=== PATIENT | female | born 1960 | race Caucasian/White ===

== ENCOUNTER → 2024-04-21 06:57 | Outpatient (REF) | payer MEDICARE, SELFPAY ==
[2024-04-21 10:02] LABS: % Basophils 1.3 % (0-2); % Eosinophils 2.6 % (0-6); % Immature Granulocytes 0.3 % (0-0.5); % Lymphocytes 38.9 % (20.5-51.1); % Monocytes 7.6 % (1.7-9.3); % Neutrophils 49.3 % (42.2-75.2); Absolute Basophils 0.1 10^3/uL (0-0.2); Absolute Eosinophils 0.1 10^3/uL (0-0.7); Absolute Lymphocytes 1.5 10^3/uL (1.2-3.4); Absolute Monocytes 0.3 10^3/uL (0.1-0.6); Absolute Neutrophils 1.9 10^3/uL (1.4-6.5); Hematocrit 41.8 % (37.0-47.0); Hemoglobin 14.1 g/dL (12.0-16.0); Mean Corp Hgb Conc. 33.7 g/dL (33.0-37.0); Mean Corpuscular Hgb 30.3 pg (27.0-31.0); Mean Corpuscular Volume 89.7 fL (81.0-99.0); Mean Platelet Volume 10.5 fL (7.4-10.4); Nucleated Red Blood Cells % 0 %; Platelet Count 169 10^3/uL (130-400); Red Blood Cell Count 4.66 10^6/uL (4.20-5.40); Red Cell Dist. Width 12.3 % (11.5-14.5); White Blood Cell Count 3.8 10^3/uL (4.8-10.8)
[2024-04-21 10:23] LABS: ALT (SGPT) 18 U/L (0-35); AST (SGOT) 24 U/L (14-36); Albumin 4.5 g/dl (3.5-5.0); Alkaline Phosphatase 75 U/L (38-126); Blood Urea Nitrogen 16 mg/dl (7-17); Calcium 9.3 mg/dl (8.4-10.2); Carbon Dioxide 29 mmol/L (22-30); Chloride 101 mmol/L (98-107); Glucose 109 mg/dl (70-99); HDL Cholesterol 100 mg/dl; LDL Cholesterol, Calculated 105 mg/dl; Potassium 3.7 mmol/L (3.5-5.1); Sodium 138 mmol/L (135-145); Total Bilirubin 0.7 mg/dl (0.2-1.3); Total Cholesterol 223 mg/dl (50-199); Total Protein 7.2 g/dl (6.3-8.2); Triglyceride 94 mg/dl (10-149); Very Low Density Lipoprotein 18 mg/dl (0-30); eGFR > 60.00
[2024-04-21 10:52] LABS: TSH Reflex To Free T4 2.08 uIU/ml (0.47-4.68)
== END ==
LOC: HWLAB 06:57
PROVIDERS: ATTENDING PHYSICIAN Internal Medicine
DX: Z00.00 Encounter for general adult medical examination without abnormal findings (principal); E78.01 Familial hypercholesterolemia; R79.9 Abnormal finding of blood chemistry, unspecified
CPT/HCPCS: 36415; 80053; 80061; 84443; 85025

== ENCOUNTER → 2024-05-17 06:29 | Outpatient (REF) | payer MEDICARE, SELFPAY | LOC: HWWDC 06:29 | PROVIDERS: ATTENDING PHYSICIAN Obstetrics & Gynecology Gynecology; FAMILY PHYSICIAN Internal Medicine | DX: Z12.31 Encounter for screening mammogram for malignant neoplasm of breast (principal) | CPT/HCPCS: 77063; 77067 ==

== ENCOUNTER 2024-11-17 00:02 | Inpatient (IN) | payer MEDICARE, SELFPAY ==
[2024-11-16] VITALS (11 sets, daily range): BP systolic 135–182; BP diastolic 93–143; BMI 25.2
[2024-11-16 20:11] LABS: Hematocrit 40.4 % (37.0-47.0); Hemoglobin 14.2 g/dL (12.0-16.0); Mean Corp Hgb Conc. 35.1 g/dL (33.0-37.0); Mean Corpuscular Volume 84.9 fL (81.0-99.0); Nucleated Red Blood Cells % 0 %; Platelet Count 158 10^3/uL (130-400); Red Cell Dist. Width 13.2 % (11.5-14.5)
[2024-11-16 20:32] LABS: ALT (SGPT) 19 U/L (0-35); AST (SGOT) 28 U/L (14-36); Albumin 4.3 g/dl (3.5-5.0); Alkaline Phosphatase 63 U/L (38-126); Blood Urea Nitrogen 23 mg/dl (7-17); Calcium 8.5 mg/dl (8.4-10.2); Carbon Dioxide 25 mmol/L (22-30); Chloride 104 mmol/L (98-107); Estimated Creatinine Clearance 58 ml/min; Glucose 123 mg/dl (70-99); Potassium 3.7 mmol/L (3.5-5.1); Sodium 135 mmol/L (135-145); Total Protein 6.7 g/dl (6.3-8.2); eGFR > 60.00
[2024-11-16 20:35] LABS: Troponin I < 0.012 ng/ml
--- NOTE | 2024-11-16 20:40 | ED.GENMED ---
History of Present Illness
General
Chief Complaint: Heart Rate Problem
Time Seen by Provider: 11/16/24 19:48
History of Present Illness
History of Present Illness:
63-year-old female with history of hyperlipidemia and arthritis presenting to the emergency department for palpitations and elevated heart rate. Patient reports 5 days ago after traveling she started to feel generally unwell. The following day,
felt worse with fevers or cough. She tested herself for COVID, positive. Today she was starting to feel more dizzy and lightheaded with palpitations. She talk to her primary care doctor who advised that she come to the hospital. Patient arrives
in atrial fibrillation with no prior history. She is not on any blood thinners. She is currently taking Paxlovid, did not take the medication today. Denies chest pain. Notes some mild dyspnea and coughing. Reports that her fevers have improved.
Denies abdominal pain or GI symptoms. Denies additional acute medical complaints.
Past History
Past History
ED Past Medical History: Other (Migraine headache) and Other (coarctation of aorta)
ED Past Surgical History: Cardiac and
Social History
Tobacco: Non-smoker
Alcohol: None
Drug: None
Personal:
Living: with family
Phy Exam
Physical Exam
Physical Exam:
General: Well-appearing, no clinical signs of dehydration, nontoxic and in no acute distress
HEENT: protecting airway
Neck: appears supple
CV: Irregularly irregular rhythm, tachycardic
Resp: No accessory muscle use, no increased work of breathing, lungs clear to auscultation bilaterally
Abd: No distention
Extremities: No deformities, no swelling
Neuro: alert, no focal neurologic deficit
: deferred
Rectal: deferred
Psych: Normal affect
Skin: Intact
Course
Orders/Labs/Results
Orders:
Orders
11/16/24 19:09
Electrocardiogram (*1) Urgent
Reason for Study: Atrial Fibrillation
EKG- Treatment ONCE
11/16/24 20:03
Complete Blood Count/With Diff Urgent
Comprehensive Metabolic Panel Urgent
Troponin I Urgent
11/16/24 20:24
Diltiazem HCl [Cardizem] 18 mg IV NOW STA
11/16/24 20:34
CR Chest Portable - 1 View Urgent
Comment:
Reason For Exam: COVID, afib
Reason Study Needs to be Portable: Other
11/16/24 21:15
COVID-19 Antigen Urgent
Source: Nasal Swab
11/16/24 21:20
Diltiazem 125 mg/125 ml Nss [Cardizem] 125 mg in 125 ml IV NOW
Currently infusing. Continue current dose and titrate:: Yes
Titrate to keep:: Heart rate 80-100 bpm
Titrate by mg/hr:: 5 mg/hr
Frequency of titrations (minutes):: 15
Maximum dose in mg/hr:: 15
11/16/24 21:54
PTT Urgent
Prothrombin Time Urgent
11/16/24 22:24
Electrocardiogram (*1) Urgent
Reason for Study: Palpitations
EKG- Treatment ONCE
Apixaban [Eliquis] 5 mg PO ONCE ONE
Abnormal Lab Results
11/16/24 11/16/24
20:03 21:15
WBC 3.5 L 10^3/uL
(4.8-10.8)
Monocytes % 11.3 H %
(1.7-9.3)
BUN 23 H mg/dl
(7-17)
Glucose 123 H mg/dl
(70-99)
SARS-CoV-2 Antigen Positive A
(Negative)
11/16/24 20:03
11/16/24 20:03
Vital Signs
Initial and Last Documented VS:
Initial Vital Signs
Pulse Resp Pulse Ox
152 16 98
11/16/24 19:14 11/16/24 19:14 11/16/24 19:14
Last Documented Vital Signs
Pulse Resp BP Pulse Ox
107 28 181/136 93
11/16/24 21:31 11/16/24 21:31 11/16/24 21:31 11/16/24 21:15
MDM/Problems Addressed
MDM/Problems Addressed:
63-year-old female with history of hyperlipidemia and arthritis presenting for concern of atrial fibrillation, positive COVID status. Vital signs on arrival significant for tachycardia and hypertension.
On exam, patient is resting comfortably, no acute distress. However patient is in obvious A-fib with RVR, confirmed by EKG. No prior history and patient notes that she has been feeling unwell for the past 5 days, no anticoagulation so does not
appear to be a candidate for cardioversion. Will try diltiazem for control. Possibly provoked by COVID infection. Will screen with laboratory analysis and chest x-ray imaging, however stable from a respiratory standpoint.
20:40 - Labs unremarkable.
22:50 -patient's heart rate is better controlled on diltiazem drip, however still going into the low 100s. Eliquis given. Admitting for new onset A-fib for rate control.
*Pulse Oximetry
SaO2: 97
Oxygen Mode of Delivery: Room air
Patient hypoxic: no
*EKG
Interpreted by ED Provider?: Yes
EKG Intrepretation Date: 11/16/24
EKG Intrepretation Time: 20:45
Interpretation: abnormal
Comparison EKG: no comparison EKG present
Heart Rate: 152
Rate: tachycardiac
Rhythm: a-fib
[place]: normal axis
QRS Pattern: right bundle branch block
Ischemia: non-specific ST changes
*Critical Care Note
Total Time (30-74mins, 75-104mins- exclusive of procedures): Not Applicable
ED Attending Note
-
Portions of this chart may have been created with voice recognition software.� Occasional wrong word or��sound alike� substitutions may have occurred due to the inherent limitations of voice recognition software.
Discharge Plan
Departure
Prescriptions:
No Action
ondansetron 4 MG tablet,disintegrating
4 mg PO TIDPRN PRN (Reason: nausea/vomiting) Qty: 12 0RF
Referrals:
Ivan Junior I., DO [Family Provider, Internal Medicine]
Interventions
Interventions:
*Risk Screen - Suicide Last Done: 11/16/24 19:09
*General Assessment Last Done: 11/16/24 19:14
*ED- Fall Risk Assessment Last Done: 11/16/24 19:14
*ED COVID-19 Vaccine History Last Done: 11/16/24 19:14
ED- Cardiac Assessment Last Done: 11/16/24 20:00
ED- Pulmonary Assessment Last Done: 11/16/24 20:00
Discharge Date and Time
Print Language: IRISH
[2024-11-16] MEDS: CARDIZEM 18 MG IV (21:06)
[2024-11-16 21:32] LABS: COVID-19 Antigen Positive (Negative)
[2024-11-16] MEDS: CARDIZEM 125 IV (21:50)
[2024-11-16 22:16] LABS: INR 0.95; PT 13.2 Sec (11.4-14.6)
[2024-11-16 22:17] LABS: APTT 28.5 Sec (23.4-35.0)
--- NOTE | 2024-11-16 22:57 | HPS.HSE ---
Family Physician
-
Family Physician: Ivan Junior
Chief Complaint
-
palpitations and elevated heart rate
History of Present Illness
Patient is a 63-year-old female with past medical history significant for hyperlipidemia who presented to [facility] ED for evaluation of palpitations and elevated heart rate. Patient reports recent travel and when she returned home she started not
feeling well and ultimately tested positive for Covid on Wednesday. Patient took 3 days of Paxlovid and still was not feeling well so called to schedule appointment with primary care which was at 1800 this evening, she was seen by provider and referred
directly to ED for evaluation of new onset atrial fibrillation. Patient reports fever and cough throughout week. She states today she called for appointment because of feeling dizzy, weakness and exertional dyspnea.
Medical History
Past Medical History
Past Medical History: Reports Other
Additional Past Medical History:
hyperlipidemia
osteoarthritis
Headache, migraine
Atrial septal defect-open heart surgery age 4 years
Hepatitis C-treated for 1 yr successful
herniated disc
Coarctation of the aorta
Past Surgical History: Reports Other
Additional Past Surgical History:
Liver Biopsy
D and C
section
Right L3-L4 Interlaminar Epidural Steroid Injection 01/05/17
Right L3-L4 Interlaminar Epidural Steroid Injection 03/05/17
Atrial septal defect-open heart surgery age 4 years
Coarctation of the Aorta- surg 6 months
Herniated Disc Surgery (2018)
08/17/2020 appendectomy ([facility])
Social History
Tobacco: Non-smoker
Alcohol: None
Drug: None
Personal:
Living: With Family
Employment: Employed
Family History
Family History: Other (Mother: a-fib; Sister: a-fib)
Allergies / Home Medications
Allergies reflects when Allergies were last updated in [facility].
Home Medications with original date entered in [facility]
Allergy/Medication List:
Allergies
Allergy/AdvReac Type Severity Reaction Status Date / Time
epinephrine Allergy 'makes me Verified 11/16/24 19:14
panicky'
and heart
races
Home Medications
atorvastatin 10 mg tablet 10 mg PO HS 11/16/24
celecoxib 200 mg capsule (Celebrex) 200 mg PO DAILY 11/16/24
Review of Systems
-
History Source: Patient
Constitutional: Reports Fever and Chills
EENT: Denies Sore Throat
Respiratory: Reports Cough and Trouble Breathing (exertional dyspnea )
Cardiac: Reports Palpitations; Denies Chest Pain or Diaphoresis
Abdomen/GI: Denies Abdominal Pain, Nausea, Vomiting or Diarrhea
: Denies Flank Pain
Musculoskeletal: Denies Edema
Skin: Denies Itching
Neurological: Reports Dizzy and Weakness
Endocrine: Denies Polyuria or Polydipsia
Psych: Reports Calm
Physical Exam
Vital Signs
Vital Signs
Pulse Resp BP Pulse Ox
107 28 181/136 93
11/16/24 21:31 11/16/24 21:31 11/16/24 21:31 11/16/24 21:15
Physical Exam
General: Well Developed, Well Nourished, No Apparent Distress, Comfortable and Conversant
HEENT: NormoCephalic, Moist mucous membranes and Atraumatic
Respiratory: Clear and Non Labored Respirations
Cardiac: S1/S2, Irregular Rhythm and Tachycardia; No Murmur, Rub, Gallop or Peripheral Edema
Breast: Deferred by me
GI: Soft, Non Tender, Non Distended and Normal Bowel Sounds; No Organomegaly
Rectal: Deferred by Provider
Genito-urinary: Deferred by me
Musculoskeletal: No Clubbing, No Cyanosis and No Edema
Skin: Warm and IV/Catheter Site
Neuro: Nonfocal/grossly intact
Psych: Calm and Intact Judgment/Insight
Laboratory Results
-
11/16/24 20:03
11/16/24 20:03
Laboratory Results
PT 13.2 Sec (11.4-14.6) 11/16/24 21:54
INR 0.95 11/16/24 21:54
APTT 28.5 Sec (23.4-35.0) 11/16/24 21:54
Total Bilirubin 0.6 mg/dl (0.2-1.3) 11/16/24 20:03
AST 28 U/L (14-36) 11/16/24 20:03
ALT 19 U/L (0-35) 11/16/24 20:03
Alkaline Phosphatase 63 U/L (38-126) 11/16/24 20:03
Troponin I < 0.012 ng/ml 11/16/24 20:03
Data Reviewed
-
Diagnostic Radiology: Report Reviewed by me (CXR: No acute cardiopulmonary process.)
Lab Data: Labs Reviewed by me
Impression/Plan
-
IMPRESSION/PLAN:
#new onset atrial fibrillation with RVR
CXR: No acute cardiopulmonary process.
EKG: ATRIAL FIBRILLATION
LEFT AXIS DEVIATION
INCOMPLETE RIGHT BUNDLE BRANCH BLOCK
POSSIBLE INFERIOR INFARCT , AGE UNDETERMINED
- Admit to IMU
- Consult Cardiology
- ECHO in AM
- diltiazem gtt
- start Eliquis
#covid
- stop Paxlovid
- supportive care
#hyperlipidemia
- continue atorvastatin
#osteoarthritis
- continue celecoxib
Code status: full code
DVT prophylaxis: Eliquis
[2024-11-16] MEDS: ELIQUIS 5 MG PO (23:09)
--- NOTE | 2024-11-16 23:18 | W.PN.UPDATE ---
Update Note
Progress Note Update
This note serves as an addendum to the H&P by lithograph press operator LAUREN�
Mandi Dickson�
HPI
63F HX HTN, hyperlipidemia and arthritis seen at ER:
- Evaluation for for palpitations and elevated heart rate.
- Denies chest pain.
- reports 5 days ago after traveling she started to feel generally unwell.
- COVID, positive since Wednesday ( 11/13/24) - currently taking Paxlovid, did not take the medication today.
- Today she was starting to feel more dizzy and lightheaded with palpitations.
- sent in to ER by PCP
- Patient arrives in atrial fibrillation with no prior history. - not on any blood thinners.
- some mild dyspnea and coughing. - fevers have improved.
- Denies abdominal pain or GI symptoms.
- Denies additional acute medical complaints.
Relevant VS
Pulse Resp BP Pulse Ox
107 28 181/136 93
11/16/24 21:31 11/16/24 21:31 11/16/24 21:31 11/16/24 21:15
PE
Gen: Not toxic
HEENT: anicteric
Neck: supple
Lungs: no labored breathing
Cor: Irrgegular
BEER MERCHANT: AAO3
MS: no edema
Psych: appropriate
Relevant data�
11/16/24 11/16/24
20:03 21:15
WBC 3.5 L
Monocytes % 11.3 H
BUN 23 H
Glucose 123 H
SARS-CoV-2 Antigen Positive A
CXR
- No acute cardiopulmonary process.
ASSESSMENT & PLAN
Pending Rx reconciliation
New onset symptomatic Fast A Fib
- questionable an episode of A Fib in October but did not see [facility]
- agree with Diltiazem gtt
- agree with Eliquis 5 mg BID
- ECHO in AM
- CBC card consult
Uncontrol HTN - Initial BP 180/135
HX Benign HTN
- Observe BP on Diltiazem gtt
HX HLD
- check Lipids
Positive COVID since Wednesday
- Borderline hypoxic RI
- NEG CXR - no indication fo steroids
- Covid remain POS upon admissin
- clinical onset of unwell since Wednesday.
- on BR[employer] PREPARER Paxolovid D3 - she declined further Paxlovid
- supportive care with O2 PRN to keep POx > 93
DVT Px: on Eliquis
Full Code
IP TLM
[2024-11-16 23:51] LABS: Magnesium 2.1 mg/dl (1.6-2.3)
[2024-11-17] VITALS (16 sets, daily range): BP systolic 109–161; BP diastolic 81–139; BMI 26.8
--- NOTE | 2024-11-17 01:00 | PTCARENOTE ---
Addendum entered by No Warren RN 11/17/24 06:38:
BETHANIE Kalani made aware of HR, restarting Cardizem gtt.
Addendum entered by No Warren RN 11/17/24 05:51:
While patient was ambulating HR up to 120s. Pt now resting HR 105.
Original Note:
Received patient from ED via stretcher. Pt ambulated to the bed with standby assistance. Pt denied any dizziness. AAOx3, pleasant. [place] has b/l hearing aids. A-fib on the monitor HR 90s-100s. Pt weaned off Cardizem gtt in ED. Pt on room air. Non
productive occasional cough. c/o headache administered PRN Tylenol. Assessment and care as charted. staying the night. Pt oriented to the unit and call koroma. Call koroma within reach.
[2024-11-17] MEDS: TYLENOL 650 MG PO ×2 (02:08→15:51)
[2024-11-17 03:42] LABS: Hematocrit 37.4 % (37.0-47.0); Hemoglobin 13.0 g/dL (12.0-16.0); Mean Corp Hgb Conc. 34.8 g/dL (33.0-37.0); Mean Corpuscular Volume 85.6 fL (81.0-99.0); Platelet Count 163 10^3/uL (130-400); Red Cell Dist. Width 13.2 % (11.5-14.5)
[2024-11-17 04:01] LABS: Blood Urea Nitrogen 16 mg/dl (7-17); Calcium 8.6 mg/dl (8.4-10.2); Carbon Dioxide 25 mmol/L (22-30); Chloride 106 mmol/L (98-107); Estimated Creatinine Clearance 75 ml/min; Glucose 151 mg/dl (70-99); HDL Cholesterol 77 mg/dl; LDL Cholesterol, Calculated 98 mg/dl; Potassium 4.0 mmol/L (3.5-5.1); Sodium 138 mmol/L (135-145); Very Low Density Lipoprotein 13 mg/dl (0-30); eGFR > 60.00
[2024-11-17] MEDS: CARDIZEM 125 IV (06:23)
[2024-11-17] MEDS: CELEBREX 200 MG PO (08:36)
[2024-11-17] MEDS: ELIQUIS 5 MG PO (08:37)
--- NOTE | 2024-11-17 09:34 | CON.CAR ---
Addendum entered and electronically signed by Darron Roque MD 11/17/24 11:42:
Patient evaluated in collaboration with GOAT HERDER; agree with below.
- 63-year-old female with hypertension, hyperlipidemia, and osteoarthritis admitted with COVID; Cardiology consulted for new onset atrial fibrillation.
- Recommend transitioning the patient from Cardizem drip to PO Cardizem CD 180 mg daily for now--uptitrate as needed for optimal heart rate control.
- Continue Eliquis.
- Can obtain echocardiogram as outpatient; order canceled.
- Continue classroom monitor.
Original Note:
Consultation
Consultation Request
Date/Time Consultation Requested: 11/17/24 12:30a
Date/Time Consultation Performed: 11/17/24 8:30a
Requesting Provider: BETHANIE Almonte
Performing Provider: BETHANIE Souza per Dr. Roque
Reason for Consultation: new onset rapid Afib
Medical History
-
Chief Complaint: sob, weakness
History of Present Illness:
Mrs. Vazquez is a 63 yo female with HLD, OA and prior ASD repair at age 4, who presents to the ER from PCP office with new rapid Afib. She was feeling weak, lightheaded and SOB with a cough on 11/13/24, tested positive for COVID and PCP prescribed
Paxlovid. Yesterday she c/o racing heart and went to PCP, EKG showed new rapid Afib and they sent her to the ER. She was started on Diltiazem drip and Eliquis and admitted to the hospitalist service. We are consulted for new rapid Afib. Her BP
is very elevated since admission as well.
Past Medical History
Past Medical History: Other (as above)
Past Surgical History: Cardiac (ASD repair age 4)
Social History
Tobacco: Non-Smoker
Alcohol: None
Personal:
Living: With Family
Family History
Family History: Other (mother, sister and maternal uncles with Afib)
Allergies / Home Medications
Allergy/AdvReac Type Severity Reaction Status Date / Time
epinephrine Allergy 'makes me Verified 11/16/24 19:14
panicky'
and heart
races
�Medication �Instructions �Recorded �Confirmed �Type
atorvastatin 10 mg tablet 10 mg PO HS High Cholesterol 11/16/24 11/16/24 History
celecoxib 200 mg capsule (Celebrex) 200 mg PO DAILY Osteoarthritis 11/16/24 11/16/24 History
Review of Systems
-
History Source: Patient
All other systems: Negative unless noted
Physical Exam
Vital Signs
Temp Pulse Resp BP Pulse Ox
97.8 F 98 23 140/115 92
11/17/24 07:24 11/17/24 06:30 11/17/24 06:30 11/17/24 06:00 11/17/24 06:30
Lab Results
11/17/24 03:23
11/17/24 03:23
Troponin I < 0.012 ng/ml 11/16/24 20:03
Physical Exam
General: Well Developed, Well Nourished and No Apparent Distress
HEENT: Normocephalic, Anicteric and Moist Mucous Membranes
Respiratory: Clear and Non Labored Respirations
Cardiac: S1/S2 and Irregular Rhythm
Breast: Deferred by me
GI: Soft, Non Tender, Non Distended and Normal Bowel Sounds
Rectal: Deferred by Provider
Genito-urinary: Clear Urine
Musculoskeletal: No Clubbing, No Cyanosis and No Edema
Skin: Warm and Dry
Neuro: AO x 3
Hematologic/Lymphatic: No Lymphadenopathy
Psych: Calm
Impression / Plan
-
Afib - new onset, duration unknown, rapid ventricular response.
- rates improved with IV Diltiazem, switch to PO and monitor.
- plan for rate control and resolution of COVID then outpatient echo, stress test and can discuss rhythm control.
- [id number] score is 2 (female, age), maybe 3 with HTN... she is on Eliquis 5mg BID, continue.
- currently denies palpitations or other cardiac symptoms.
COVID - tested positive 11/13/24 and treated with Paxlovid.
- per hospitalist.
Elevated BP without diagnosis of HTN - acute, new.
- monitor with addition of PO Diltiazem.
- will titrate as necessary.
HLD - stable on Simvastatin, contniue.
Data Reviewed
-
EKG: Tracing Personally Visualized and interpreted (Afib 158 bpm, then 98 bpm)
Radiology: Report Reviewed by me (CXR: NAD)
Labs: Labs Reviewed by me
Old Records: Reviewed
[2024-11-17] MEDS: CARDIZEM CD 180 MG PO (09:57)
--- NOTE | 2024-11-17 11:16 | PTCARENOTE ---
Patient AAOx3, states feeling much better. Slight occasional cough, nonproductive. RA. DBPs elevated at times. Cardizem gtt off. HR currently 80s, afib. Continuing to monitor patient.
--- NOTE | 2024-11-17 11:53 | CM ---
Spoke with patient to obtain information for assessment. Patient stated that she lives with her spouse in a two story single home with 3 steps to enter. She described herself as independent with all of her ADLs, personal care, bathing and dressing.
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 She was driving and was able to transport herself to all of her appointments and did all of her own shopping. She has never had VN. She has not been to a SNF in the past. She has no DME.
Patient has a prescription plan and uses, [facility] in [place] for all of her medications.
Her PCP is Ivan Mack.
Plan: Case management will continue to follow and assist with discharge planning. Will watch for needs.
--- NOTE | 2024-11-17 13:30 | W.PN.HOSP.TC ---
Today's Communication/Plan
-
Assessment / Plan
Assessment / Plan
General: No Apparent Distress, Comfortable and Conversant
HEENT: NormoCephalic, Moist mucous membranes, Atraumatic
Respiratory: Clear and Non Labored Respirations
Cardiac: Irregular rhythm, heart rate controlled around 80
GI: Soft, Non Tender, Non Distended and Normal Bowel Sounds
Musculoskeletal: No Edema, no deformity
Skin: Warm and dry
: NO Quintero
Neuro: Awake, Alert, Nonfocal/grossly intact
Psych: Calm and Intact Judgment/Insight
Ms. Vazquez is a 63-year-old female with a medical history of ASD (repaired at age 4), osteoarthritis, and hyperlipidemia who was sent from her PCP office due to rapid A-fib. This is a new diagnosis for her. She has been experiencing a cough and
generalized weakness since 11/13 at which time she tested positive for COVID and was started on Paxlovid. On 11/16 she returned to her PCP office due to feeling that her heart was racing, at which time EKG showed A-fib with RVR. She was sent to the
ED for further evaluation. She was started on diltiazem drip and Eliquis and admitted for further evaluation and management.
A-fib with RVR:
- New diagnosis for her, family history of A-fib
- Likely triggered by COVID-19 infection
- Have now transitioned off of diltiazem drip to oral diltiazem 180 mg daily
- Continue anticoagulation with full-strength Eliquis
- Will need outpatient follow-up for echocardiogram, adjustments to her rate control regimen as needed, and discussions about rhythm control
DVT prophylaxis: Eliquis
CODE STATUS: Full code
Total time spent on today's encounter was 52 minutes
Anticipated Discharge: 24 - 48 hours
Subjective/Interval History
-
Date of Service: November 17, 2024
Patient was seen and examined at bedside this morning. Heart rate is currently well-controlled on diltiazem drip. Feels generally weak due to COVID but not experiencing palpitations.
Objective Data
-
Labs:
Laboratory Results
11/17/24
03:23
WBC 3.6 L
Hgb 13.0
Hct 37.4
Plt Count 163
Sodium 138
Potassium 4.0
Chloride 106
Carbon Dioxide 25
BUN 16
Creatinine 0.7
Glucose 151 H
Calcium 8.6
Vital Signs:
Vital Signs
Temp Pulse Resp BP Pulse Ox
97.8 F 78 22 142/96 91
11/17/24 11:23 11/17/24 11:15 11/17/24 11:15 11/17/24 10:00 11/17/24 11:15
I&O
11/16/24 11/17/24 11/18/24
06:59 06:59 06:59
Intake Total 240 / 240
Balance 240 / 240
Review of Systems
-
History Source: Patient
All other systems: Reviewed and negative
Constitutional: Reports Weakness
Physical Exam
-
General: No Apparent Distress
--- NOTE | 2024-11-17 15:26 | W.DCSUMMARY ---
Discharge Summary
Discharge Data
Date of Admission: 11/17/24
Date of Discharge: 11/17/24
Total time spent discharging patient (in min): 52
-
Pending Results: No
Hospital Course
Ms. Vazquez is a 63-year-old female with a medical history of ASD (repaired at age 4), osteoarthritis, and hyperlipidemia who was sent from her PCP office due to rapid A-fib. This is a new diagnosis for her. She has been experiencing a cough and
generalized weakness since 11/13 at which time she tested positive for COVID and was started on Paxlovid. On 11/16 she returned to her PCP office due to feeling that her heart was racing, at which time EKG showed A-fib with RVR. She was sent to the
ED for further evaluation. She was started on diltiazem drip and Eliquis and admitted for further evaluation and management.
Her heart rate was well-controlled with IV diltiazem drip which was ultimately able to be transitioned to oral diltiazem 180 mg daily. She was started on anticoagulation with Eliquis which she will continue after discharge. She will need close
outpatient cardiology follow-up. She will be continued on diltiazem 180 mg daily until follow-up with cardiology, at which time dosage adjustments can be made as needed. She will also get an echocardiogram in the outpatient setting. Atrial
fibrillation is a new diagnosis for her, although she does have a family history of A-fib. This arrhythmia was likely triggered by her acute COVID-19 infection. She was closely monitored by the cardiology team while inpatient and has planned
outpatient follow-up. At time of hospital discharge she was medically stable.
General: No Apparent Distress, Comfortable and Conversant
HEENT: NormoCephalic, Moist mucous membranes, Atraumatic
Respiratory: Clear and Non Labored Respirations
Cardiac: Irregular rhythm, heart rate controlled around 80
GI: Soft, Non Tender, Non Distended and Normal Bowel Sounds
Musculoskeletal: No Edema, no deformity
Skin: Warm and dry
: NO Quintero
Neuro: Awake, Alert, Nonfocal/grossly intact
Psych: Calm and Intact Judgment/Insight
Discharge Plan
-
Patient Disposition: Home (Routine Discharge)
Discharge Diagnosis/Procedures: New onset A-fib with RVR
Others Tests: An echocardiogram has been ordered for you by cardiology. Please call the cardiology office to schedule.
Activity Restrictions/Additional Instructions:
Ms. Vazquez is a 63-year-old female with a medical history of ASD (repaired at age 4), osteoarthritis, and hyperlipidemia who was sent from her PCP office due to rapid A-fib. This is a new diagnosis for her. She has been experiencing a cough and
generalized weakness since 11/13 at which time she tested positive for COVID and was started on Paxlovid. On 11/16 she returned to her PCP office due to feeling that her heart was racing, at which time EKG showed A-fib with RVR. She was sent to the
ED for further evaluation. She was started on diltiazem drip and Eliquis and admitted for further evaluation and management.
Her heart rate was well-controlled with IV diltiazem drip which was ultimately able to be transitioned to oral diltiazem 180 mg daily. She was started on anticoagulation with Eliquis which she will continue after discharge. She will need close
outpatient cardiology follow-up. She will be continued on diltiazem 180 mg daily until follow-up with cardiology, at which time dosage adjustments can be made as needed. She will also get an echocardiogram in the outpatient setting. Atrial
fibrillation is a new diagnosis for her, although she does have a family history of A-fib. This arrhythmia was likely triggered by her acute COVID-19 infection. She was closely monitored by the cardiology team while inpatient and has planned
outpatient follow-up. At time of hospital discharge she was medically stable.
Referrals:
Ivan Junior DO [Family Provider, Internal Medicine]
Darron Roque MD [Active, Cardiology]
Referral Note: new onset afib
Prescriptions:
New
diltiazem HCl 180 mg Capsule,Extended Release 24hr
180 mg PO DAILY 30 Days Qty: 30 0RF
Eliquis 5 mg Tablet
5 mg PO BID 90 Days Qty: 180 0RF
Continued
celecoxib [Celebrex] 200 mg Capsule
200 mg PO DAILY
atorvastatin 10 mg Tablet
10 mg PO HS
Discharge Orders:
Discharge Patient (As Directed); Ordered 11/17/24
Ordered By: Lauri Ayala
Discharge Date and Time
Print Language: YAKUT
--- NOTE | 2024-11-17 16:49 | PTCARENOTE ---
DC paperwork reviewed with patient and . All questions answered. Afib, VSS, patient with no complaints. IV and tele removed. Awaiting wheelchair to take patient to vehicle.
== END 2024-11-17 17:08 | disposition home or self-care (01) | DRG 308 ==
LOC: IMU 00:02
PROVIDERS: Emergency Medicine; Nurse Practitioner Family; ADMITTING PHYSICIAN Internal Medicine; ATTENDING PHYSICIAN Internal Medicine; EMERGENCY PHYSICIAN Student in an Organized Health Care Education/Training Program; FAMILY PHYSICIAN Internal Medicine; OTHER PHYSICIAN Internal Medicine
DX: I48.91 Unspecified atrial fibrillation (principal); U07.1 COVID-19; I10 Essential (primary) hypertension; E78.00 Pure hypercholesterolemia, unspecified; G43.909 Migraine, unspecified, not intractable, without status migrainosus; M19.90 Unspecified osteoarthritis, unspecified site; Z79.899 Other long term (current) drug therapy
CPT/HCPCS: 71045; 80048; 80053; 80061; 83735; 84100; 84484; 85025; 85027; 85610; 85730; 87811; 93005; 96365; 96366; 99285

== ENCOUNTER → 2024-12-06 08:01 | Outpatient (REF) | payer MEDICARE, SELFPAY | LOC: HWRCS 08:01 | PROVIDERS: ATTENDING PHYSICIAN Internal Medicine; FAMILY PHYSICIAN Internal Medicine | DX: E78.01 Familial hypercholesterolemia (principal); I48.91 Unspecified atrial fibrillation | CPT/HCPCS: 93306 ==

== ENCOUNTER 2025-01-03 06:47 | Day surgery (SDC) | payer MEDICARE, SELFPAY ==
[2025-01-03 07:31] VITALS: BMI 28.4
== END 2025-01-03 11:30 | disposition home or self-care (01) ==
LOC: CATH 06:47
PROVIDERS: ATTENDING PHYSICIAN Student in an Organized Health Care Education/Training Program; FAMILY PHYSICIAN Internal Medicine; OTHER PHYSICIAN Internal Medicine
DX: I48.0 Paroxysmal atrial fibrillation (principal); E78.2 Mixed hyperlipidemia; I34.0 Nonrheumatic mitral (valve) insufficiency; E66.3 Overweight
CPT/HCPCS: 93312; 93325; 93320; 92960; 93005